=== PATIENT | male | born 1980 | race Caucasian/White ===

== ENCOUNTER 2019-03-08 07:27 | Outpatient (CLI) | payer OTHER ==
--- NOTE | 2019-03-08 09:48 | CT ---
CT ABDOMEN AND PELVIS WITH AND WITHOUT CONTRAST: Multiple axial tomograms were obtained through the abdomen and pelvis without IV enhancement. This w as followed by postcontrast images performed in the portal venous phase and delayed venous phase. INDICATION: Hematuria. History of UTIs. COMPARISON: Comparison is made to CT abdomen and pelvis without contrast from 2007. FINDINGS: Lung bases clear. The liver, spleen, and pancreas are unremarkable. Adrenal glands normal. Review of the urinary tract shows no evidence of urinary calculus on the precontrast study. No hydro nephrosis. Both kidneys show symmetric enhancement and function on postcontrast images. No evidence of renal ma ss lesion. On delayed sequence, contrast secretion into the collecting structures. Collecting struc tures appear unremarkable. The bladder is mildly distended on the delayed sequence. Evidence of mil d bladder wall thickening. No significant prostatic hypertrophy. Bowel loops unremarkable. Aorta normal caliber. No adenopathy identified. Osseous structures unrem arkable. IMPRESSION: Question mild bladder wall thickening, although the bladder is poorly distended. CT abdomen and pelv is otherwise unremarkable. No other acute urinary tract abnormality identified. POS: [facility]
== END 2019-03-08 07:28 | disposition home or self-care (01) ==
LOC: CT 07:27
PROVIDERS: ATTEND Urology
DX: N39.0 Urinary tract infection, site not specified (principal); R31.29 Other microscopic hematuria
CPT/HCPCS: 74178